=== PATIENT | male | born 1940 | race Caucasian/White ===

== ENCOUNTER 2024-08-08 19:40 | Inpatient (IN) | payer MEDICARE, OTHER ==
[~2024-08-08] VITALS: Ht 162.6 cm; Wt 45.8 kg
[2024-08-08] MEDS ORDERED: LATA2.5D15 EACHEYE (19:57)
[2024-08-08] MEDS ORDERED: SENN-291 PO (19:57)
[2024-08-08] MEDS ORDERED: RIVA1PAT3 TP (19:57)
[2024-08-08] MEDS ORDERED: GLYC1SUP17 RC (19:57)
[2024-08-08] MEDS ORDERED: FINA5TAB11 PO (19:57)
[2024-08-08] MEDS ORDERED: ACET325C7 PO (19:57)
[2024-08-08] MEDS ORDERED: MEMA10TA PO (19:57)
[2024-08-08] MEDS ORDERED: CYAN100T44 PO (19:57)
[2024-08-08] MEDS ORDERED: QUET50TA PO (19:57)
[2024-08-08] MEDS ORDERED: NA P133E8 RC (19:57)
[2024-08-08] MEDS ORDERED: ESCI10TA PO (19:57)
[2024-08-08] MEDS ORDERED: FOLI1TAB94 PO (19:57)
[2024-08-08] MEDS ORDERED: ERGO500040 PO (19:57)
[2024-08-08] MEDS ORDERED: ACET650S13 RC (19:57)
[2024-08-08] MEDS ORDERED: DOCU100C36 PO (19:57)
[2024-08-08] MEDS ORDERED: TAMS-3 PO (19:57)
[2024-08-08 20:23] LABS: CALCIUM 9.3 mg/dL (8.5-10.1); CARBON DIOXIDE 29 mmol/L (21-32); CHLORIDE 102 mmol/L (98-107); CREATININE 0.8 mg/dL (0.6-1.3); GLUCOSE 74 mg/dL (74-106); POTASSIUM 3.9 mmol/L (3.5-5.1); SODIUM SERUM 138 mmol/L (136-145); UREA NITROGEN, BLOOD 19 mg/dL (7-18)
[2024-08-08 20:26] LABS: BASOPHILS % (AUTO) 0.4 % (0.0-2.0); DIFFERENTIAL COMMENT 1; EOSINOPHILS # (AUTO) 0.4 K/uL (0.0-0.7); EOSINOPHILS % (AUTO) 4.7 % (0.0-7.0); HEMATOCRIT 33.8 % (36.7-47.1); HEMOGLOBIN 11.4 g/dL (12.5-16.3); LYMPHOCYTES # (AUTO) 2.2 K/uL (0.8-4.8); LYMPHOCYTES % (AUTO) 29.7 % (20.5-51.5); MEAN CORPUSCULAR HEMOGLOBIN 33.9 uug (23.8-33.4); MEAN CORPUSCULAR HGB CONC 34 g/dL (32.5-36.3); MEAN CORPUSCULAR VOLUME 100.6 fL (73.0-96.2); MONOCYTES # (AUTO) 0.8 K/uL (0.1-1.30); MONOCYTES % (AUTO) 10.2 % (0.0-11.0); NEUTROPHILS # (AUTO) 4.1 K/uL (1.8-8.9); PLATELET COUNT (AUTO) 178 K/uL (152-348); RED BLOOD CELL COUNT(AUTO) 3.36 MIL/uL (4.06-5.63); RED CELL DISTRIBUTION WIDTH 14.3 % (12.1-16.2); WHITE BLOOD COUNT (AUTO) 7.5 K/uL (3.6-10.2)
[2024-08-08 20:27] LABS: *BILIRUBIN,URIN NEGATIVE (NEGATIVE); *BLOOD, URINE NEGATIVE (NEGATIVE); *COLOR,URINE YELLOW (YELLOW); *KETONES,URINE NEGATIVE (NEGATIVE); *PROTEIN,URINE NEGATIVE (NEGATIVE); *UROBILINOGEN,URINE 0.2 E.U./dl (NORMAL); LEUKOCYTE ESTERASE ,URINE 3+ (NEGATIVE); NITRITE, URINE POSITIVE (NEGATIVE); UGLUCOSE NEGATIVE (NEGATIVE)
[2024-08-08 20:28] LABS: *CLARITY,URINE SLIGHTLY CLOUDY (CLEAR)
[2024-08-08 20:29] LABS: ALANINE AMINOTRANSFERASE 32 U/L (16-63); ALBUMIN 3.1 g/dL (3.4-5.0); ALKALINE PHOSPHATASE 97 U/L (50-136); ASPARTATE AMINOTRANSFERASE 25 U/L (15-37); BILIRUBIN,DIRECT 0.1 mg/dL (0.0-0.2); BILIRUBIN,TOTAL 0.3 mg/dL (0.2-1.0); TOTAL PROTEIN, SERUM 6.8 g/dL (6.4-8.2)
[2024-08-08] MEDS ORDERED: LORAZEPAM 2 MG/1 ML VIAL ONE ×2 (20:30→20:35)
[2024-08-08] MEDS: LORAZEPAM 2 MG/1 ML VIAL IV ONE (20:33)
[2024-08-08 20:36] LABS: ETHANOL < 3 MG/DL (0-10)
[2024-08-08 20:37] LABS: BACTERIA,URINE MANY /HPF (NONE SEEN); RBC,URINE NONE SEEN /HPF (0-3); SQUAMOUS EPITHELIAL CELL,UR FEW /HPF (NONE SEEN); WBC,URINE 20-50 /HPF (0-3)
[2024-08-08 20:38] LABS: URINE AMORPHOUS URATE MODERATE /HPF
[2024-08-08 20:40] LABS: *AMPHETAMINE, URINE NEGATIVE (NEGATIVE); *BARBITURATE, URINE NEGATIVE (NEGATIVE); *BENZODIAZEPINE, URINE NEGATIVE (NEGATIVE); *CANNABINOID, URINE NEGATIVE (NEGATIVE); *COCCAINE, URINE NEGATIVE (NEGATIVE); *OPIATE, URINE NEGATIVE (NEGATIVE); *PHENCYCLIDINE SCREEN,URINE NEGATIVE (NEGATIVE); FENTANYL, URINE NEGATIVE (NEGATIVE)
[2024-08-08] MEDS: LORAZEPAM 2 MG/1 ML VIAL IM ONE (20:49)
[2024-08-08] MEDS ORDERED: CYANOCOBALAMIN 1000 MCG/ML VIAL ONE (21:01)
[2024-08-08] MEDS ORDERED: CEFTRIAXONE /D5W 50ML IVPB **ER PYXIS IV ONE (21:02)
[2024-08-08] MEDS: CYANOCOBALAMIN 1000 MCG/ML VIAL IM ONE (21:13)
[2024-08-08] MEDS ORDERED: HALOPERIDOL LACTATE 5 MG/1 ML VIAL ONE ×2 (21:24→21:45)
[2024-08-08] MEDS ORDERED: SWABABLE VALVE TRANSFER SET EA MC ONE (21:27)
[2024-08-08] MEDS ORDERED: IOHEXOL 300MG/ML 100 ML INFUS..BTL ONE (21:27)
[2024-08-08] MEDS ORDERED: IV NORMAL SALINE 250 ML IV ONE (21:27)
[2024-08-08] MEDS: HALOPERIDOL LACTATE 5 MG/1 ML VIAL IV ONE ×2 (21:29→21:56)
[2024-08-08] MEDS: CEFTRIAXONE 1 G in IV DEXTROSE 5% 50 ML IV ONE (21:31)
[2024-08-08] MEDS: IV NORMAL SALINE 500 ML BAG IV ONE (21:42)
[2024-08-08] MEDS ORDERED: IBUPROFEN 400 MG TABLET ONE (21:58)
[2024-08-08] MEDS ORDERED: SULFAMETH/TRIMETH 800/160 MG TABLET ONE (21:58)
[2024-08-08] MEDS ORDERED: ACETAMINOPHEN 500 MG TABLET ONE (21:59)
[2024-08-08] MEDS ORDERED: diphenhydrAMINE 50 MG/1 ML VIAL ONE (22:17)
[2024-08-08] MEDS: diphenhydrAMINE 50 MG/1 ML VIAL IV ONE (22:23)
[2024-08-08] MEDS ORDERED: MIDAZOLAM HCL 2 MG/2 ML VIAL ONE (22:32)
[2024-08-08] MEDS: MIDAZOLAM HCL 2 MG/2 ML VIAL IV ONE (23:14)
[2024-08-09] MEDS ORDERED: ACETAMINOPHEN 650 MG SUPP.RECT RC PRN (01:45)
[2024-08-09] MEDS ORDERED: GLYCERIN PEDIATRIC RECTAL SUPP EACH RC PRN (01:45)
[2024-08-09] MEDS ORDERED: REMEDY ESSENTIAL ZINC PASTE 113 GM TP PRN (01:45)
[2024-08-09] MEDS ORDERED: MAGNESIUM HYDROXIDE 30 ML LIQUID UDC PO PRN (01:45)
[2024-08-09] MEDS ORDERED: ONDANSETRON 4 MG/2 ML VIAL IV PRN (01:45)
[2024-08-09 02:42] VITALS: BP 122/79; TEMP 97.7; O2SAT 94
[2024-08-09 04:30] VITALS: BP 114/71; TEMP 97.6; O2SAT 94
[2024-08-09 07:01] LABS: BASOPHILS % (AUTO) 0.5 % (0.0-2.0); EOSINOPHILS # (AUTO) 0.2 K/uL (0.0-0.7); EOSINOPHILS % (AUTO) 3.3 % (0.0-7.0); HEMATOCRIT 33.6 % (36.7-47.1); HEMOGLOBIN 11.6 g/dL (12.5-16.3); LYMPHOCYTES # (AUTO) 1.5 K/uL (0.8-4.8); LYMPHOCYTES % (AUTO) 22.9 % (20.5-51.5); MEAN CORPUSCULAR HEMOGLOBIN 34.5 uug (23.8-33.4); MEAN CORPUSCULAR HGB CONC 35 g/dL (32.5-36.3); MEAN CORPUSCULAR VOLUME 100.1 fL (73.0-96.2); MONOCYTES # (AUTO) 0.6 K/uL (0.1-1.30); MONOCYTES % (AUTO) 9.8 % (0.0-11.0); NEUTROPHILS % (AUTO) 63.5 % (38.5-71.5); PLATELET COUNT (AUTO) 176 K/uL (152-348); RED BLOOD CELL COUNT(AUTO) 3.36 MIL/uL (4.06-5.63); WHITE BLOOD COUNT (AUTO) 6.4 K/uL (3.6-10.2)
[2024-08-09 07:10] LABS: MAGNESIUM 2.2 mg/dL (1.8-2.4); PHOSPHOROUS 3.2 mg/dL (2.5-4.9)
[2024-08-09 07:11] LABS: DIFFERENTIAL COMMENT 1
[2024-08-09 07:31] VITALS: BP 99/47; TEMP 98; O2SAT 97
[2024-08-09] MEDS: QUETIAPINE FUMARATE 25 MG TABLET PO SCH (09:00)
[2024-08-09] MEDS: FINASTERIDE 5 MG TABLET PO SCH (09:00)
[2024-08-09] MEDS ORDERED: CYANOCOBALAMIN 100 MCG TABLET PO SCH (09:00)
[2024-08-09] MEDS: FOLIC ACID 1 MG TABLET PO SCH (09:00)
[2024-08-09] MEDS ORDERED: MEMANTINE HCL 10 MG TABLET PO SCH (09:00)
[2024-08-09] MEDS ORDERED: TAMSULOSIN HCL 0.4 MG CAP.SR.24H PO SCH (09:00)
[2024-08-09] MEDS: MEMANTINE HCL 5 MG TABLET PO SCH (09:00)
[2024-08-09] MEDS: DOCUSATE SODIUM 100 MG CAPSULE PO SCH (09:00)
[2024-08-09] MEDS: ESCITALOPRAM OXALATE 10 MG TABLET PO SCH (09:00)
[2024-08-09] MEDS: PANTOPRAZOLE SODIUM 40 MG VIAL IV SCH (09:19)
[2024-08-09] MEDS: DOXYCYCLINE HYCLATE IV 100 MG in IV DEXTROSE 5% 100 ML IV SCH (09:20)
[2024-08-09] MEDS: ENOXAPARIN SODIUM 40 MG/0.4 ML DISP.SYRIN SQ SCH (09:21)
[2024-08-09] MEDS: RIVASTIGMINE 9.5 MG/ 24 HR 9.5 MG PATCH TD SCH (09:21)
[2024-08-09 11:33] VITALS: BP 100/61; TEMP 97.9; O2SAT 94
[2024-08-09] MEDS: LORAZEPAM 2 MG/1 ML VIAL IV PRN ×2 (14:48→22:59)
[2024-08-09 15:49] VITALS: BP 92/55; TEMP 97.6; O2SAT 95
[2024-08-09 19:00] VITALS: BP 112/73; TEMP 98.5; O2SAT 95
[2024-08-09] MEDS: SENNOSIDES/DOCUSATE SODIUM TABLET PO SCH (20:06)
[2024-08-09] MEDS: TAMSULOSIN HCL 0.4 MG CAP.SR.24H PO SCH (20:06)
[2024-08-09] MEDS: CEFTRIAXONE 1 G in IV DEXTROSE 5% 50 ML IV SCH (20:06)
[2024-08-09] MEDS: LATANOPROST OPHT DROP 2.5 ML BOTTLE EACHEYE SCH (20:12)
[2024-08-10] VITALS (8 sets, daily range): BP systolic 98–145; BP diastolic 65–84; TEMP 97.5–98.1; O2SAT 95–98
[2024-08-10 07:04] LABS: BASOPHILS % (AUTO) 0.5 % (0.0-2.0); EOSINOPHILS # (AUTO) 0.2 K/uL (0.0-0.7); EOSINOPHILS % (AUTO) 3.6 % (0.0-7.0); HEMOGLOBIN 11.8 g/dL (12.5-16.3); LYMPHOCYTES # (AUTO) 1.1 K/uL (0.8-4.8); LYMPHOCYTES % (AUTO) 19.5 % (20.5-51.5); MEAN CORPUSCULAR HEMOGLOBIN 34.5 uug (23.8-33.4); MEAN CORPUSCULAR HGB CONC 35 g/dL (32.5-36.3); MEAN CORPUSCULAR VOLUME 99.8 fL (73.0-96.2); MONOCYTES # (AUTO) 0.6 K/uL (0.1-1.30); MONOCYTES % (AUTO) 11.4 % (0.0-11.0); NEUTROPHILS # (AUTO) 3.7 K/uL (1.8-8.9); PLATELET COUNT (AUTO) 169 K/uL (152-348); RED BLOOD CELL COUNT(AUTO) 3.41 MIL/uL (4.06-5.63); RED CELL DISTRIBUTION WIDTH 14.1 % (12.1-16.2); WHITE BLOOD COUNT (AUTO) 5.6 K/uL (3.6-10.2)
[2024-08-10 07:30] LABS: ALANINE AMINOTRANSFERASE 29 U/L (16-63); ALBUMIN 2.9 g/dL (3.4-5.0); ALKALINE PHOSPHATASE 98 U/L (50-136); ASPARTATE AMINOTRANSFERASE 19 U/L (15-37); BILIRUBIN,TOTAL 0.6 mg/dL (0.2-1.0); CALCIUM 8.8 mg/dL (8.5-10.1); CARBON DIOXIDE 29 mmol/L (21-32); CHLORIDE 103 mmol/L (98-107); CHOLESTEROL 185 mg/dL (<200); CREATININE 0.7 mg/dL (0.6-1.3); GLUCOSE 94 mg/dL (74-106); HDL CHOLESTEROL 75 mg/dL (40-60); MAGNESIUM 2.3 mg/dL (1.8-2.4); NT-PRO BNP 368 pg/mL (0-125); PHOSPHOROUS 2.9 mg/dL (2.5-4.9); POTASSIUM 3.8 mmol/L (3.5-5.1); SODIUM SERUM 138 mmol/L (136-145); TOTAL PROTEIN, SERUM 6.6 g/dL (6.4-8.2); TRIGLYCERIDES 54 MG/DL (30-150); UREA NITROGEN, BLOOD 14 mg/dL (7-18)
[2024-08-10] MEDS ORDERED: CEFTRIAXONE /D5W 50ML IVPB **ER PYXIS IV ONE (20:33)
[2024-08-11] VITALS (7 sets, daily range): BP systolic 103–150; BP diastolic 41–91; TEMP 97.7–99.5; O2SAT 92–98
[2024-08-11] MEDS: PANTOPRAZOLE SODIUM 40 MG TABLET.DR PO SCH (06:15)
[2024-08-11 06:46] LABS: BASOPHILS % (AUTO) 0.4 % (0.0-2.0); DIFFERENTIAL COMMENT 1; EOSINOPHILS # (AUTO) 0.1 K/uL (0.0-0.7); EOSINOPHILS % (AUTO) 1.2 % (0.0-7.0); HEMATOCRIT 33.7 % (36.7-47.1); HEMOGLOBIN 11.5 g/dL (12.5-16.3); LYMPHOCYTES # (AUTO) 0.6 K/uL (0.8-4.8); LYMPHOCYTES % (AUTO) 11.4 % (20.5-51.5); MEAN CORPUSCULAR HEMOGLOBIN 34.3 uug (23.8-33.4); MEAN CORPUSCULAR HGB CONC 34 g/dL (32.5-36.3); MEAN CORPUSCULAR VOLUME 100.3 fL (73.0-96.2); MONOCYTES # (AUTO) 0.6 K/uL (0.1-1.30); MONOCYTES % (AUTO) 11.5 % (0.0-11.0); NEUTROPHILS % (AUTO) 75.5 % (38.5-71.5); PLATELET COUNT (AUTO) 187 K/uL (152-348); RED BLOOD CELL COUNT(AUTO) 3.36 MIL/uL (4.06-5.63); RED CELL DISTRIBUTION WIDTH 14.3 % (12.1-16.2); WHITE BLOOD COUNT (AUTO) 5.3 K/uL (3.6-10.2)
[2024-08-11 06:53] LABS: CALCIUM 9.1 mg/dL (8.5-10.1); CARBON DIOXIDE 28 mmol/L (21-32); CHLORIDE 105 mmol/L (98-107); CREATININE 0.8 mg/dL (0.6-1.3); GLUCOSE 106 mg/dL (74-106); POTASSIUM 3.6 mmol/L (3.5-5.1); SODIUM SERUM 139 mmol/L (136-145); UREA NITROGEN, BLOOD 18 mg/dL (7-18)
[2024-08-11] MEDS: DOXYCYCLINE HYCLATE 100 MG TABLET PO SCH (21:39)
[2024-08-12 00:06] VITALS: BP 91/57; TEMP 98.9; O2SAT 96
[2024-08-12 01:00] VITALS: BP 102/56; O2SAT 95
[2024-08-12 04:18] VITALS: BP 95/58; TEMP 97.8; O2SAT 91
[2024-08-12 07:12] LABS: CARBON DIOXIDE 28 mmol/L (21-32); CHLORIDE 107 mmol/L (98-107); CREATININE 0.7 mg/dL (0.6-1.3); GLUCOSE 95 mg/dL (74-106); POTASSIUM 3.2 mmol/L (3.5-5.1); SODIUM SERUM 141 mmol/L (136-145); UREA NITROGEN, BLOOD 20 mg/dL (7-18)
[2024-08-12 07:43] LABS: HIV-1 p24 ANTIGEN NON REACTIVE (NONREACTIVE); HIV-1/2 ANTIBODY NON REACTIVE (NONREACTIVE)
[2024-08-12 08:00] VITALS: BP 100/58; TEMP 97.6; O2SAT 97
[2024-08-12] MEDS: POTASSIUM CHLORIDE 20 MEQ TAB.PRT.SR PO ONE (09:46)
[2024-08-12 12:00] VITALS: BP 114/56; TEMP 97.2; O2SAT 97
[2024-08-12] MEDS: CEFTRIAXONE 2 G in IV DEXTROSE 5% 50 ML IV SCH (20:12)
[2024-08-12 20:30] VITALS: BP 116/76; TEMP 98; O2SAT 99
[2024-08-13 06:00] VITALS: BP 109/62; TEMP 98.1; O2SAT 99
[2024-08-13 08:00] VITALS: BP 106/65; TEMP 97.3; O2SAT 96
[2024-08-13 08:06] LABS: HEPATITIS B CORE AB, TOTAL Negative (Negative); HEPATITIS B SURFACE AG Negative (Negative); HEPATITIS C VIRUS ANTIBODY Non Reactive (Non Reactive)
[2024-08-13 12:00] VITALS: BP 107/74; TEMP 97.3; O2SAT 99
[2024-08-13] MEDS ORDERED: AMOX-430 PO (13:05)
[2024-08-13] MEDS ORDERED: ACID1TAB4 PO (13:05)
[2024-08-13] MEDS ORDERED: TAMS-3 PO (13:05)
[2024-08-13] MEDS ORDERED: DOCU-141 PO (13:05)
[2024-08-13 16:30] VITALS: BP 128/80; TEMP 97.6; O2SAT 98
[2024-08-15] MEDS ORDERED: ERGOCALCIFEROL 50,000 UNIT CAPSULE PO SCH (09:00)
== END 2024-08-13 17:20 | DRG 871 ==
LOC: ER 19:40 → TELE3 08-09 01:10 → MEDSURG3 08-09 09:30 → TELE3 08-09 14:40 → MEDSURG3 08-12 18:20
PROVIDERS: ATTEND Internal Medicine
PROC: 05HB33Z Insertion of Infusion Device into Right Basilic Vein, Percutaneous Approach (ICD-10-PCS; principal; 2024-08-09)
DX: A41.9 Sepsis, unspecified organism (principal); G93.41 Metabolic encephalopathy; J69.0 Pneumonitis due to inhalation of food and vomit; N39.0 Urinary tract infection, site not specified; Z68.1 Body mass index [BMI] 19.9 or less, adult; F02.82 Dementia in other diseases classified elsewhere, unspecified severity, with psychotic disturbance; D68.59 Other primary thrombophilia; E44.0 Moderate protein-calorie malnutrition; R62.7 Adult failure to thrive; Z66 Do not resuscitate; Z87.891 Personal history of nicotine dependence; N31.9 Neuromuscular dysfunction of bladder, unspecified; G30.9 Alzheimer's disease, unspecified; N40.0 Benign prostatic hyperplasia without lower urinary tract symptoms; Z91.81 History of falling; E87.6 Hypokalemia; E78.5 Hyperlipidemia, unspecified; D53.9 Nutritional anemia, unspecified; E86.0 Dehydration; M13.0 Polyarthritis, unspecified; H40.9 Unspecified glaucoma; E55.9 Vitamin D deficiency, unspecified; R94.8 Abnormal results of function studies of other organs and systems; E67.8 Other specified hyperalimentation; Z74.09 Other reduced mobility; K44.9 Diaphragmatic hernia without obstruction or gangrene; Z87.828 Personal history of other (healed) physical injury and trauma; M81.0 Age-related osteoporosis without current pathological fracture
CPT/HCPCS: 36415; 70450; 71045; 71260; 83735; 84100; 84443; 84484; 85025; 86704; 86803; 87340; 87806; A4606; A4663; A9150; C1758; G0378; G0480; J0696; J1200; J1630; J1650; J2060; J2250; J2470; J3420; J3490; J7040; Q9967